=== PATIENT | male | born 1990 | race Caucasian/White ===

== ENCOUNTER 2023-01-18 13:18 | Emergency (ER) | payer OTHER ==
[~2023-01-18] VITALS: Ht 162.6 cm; Wt 73.1 kg
[~2023-01-18 13:18] MED LIST: BUSPIRONE HCL10 MG; NAPROSYN500 MG PO; ROBAXIN-750750 MG PO
[2023-01-18] MEDS ORDERED: ZITHROMAX250 MG PO (13:40)
[2023-01-18 14:06] VITALS: BP 148/88
== END 2023-01-18 14:06 | disposition home or self-care (01) ==
LOC: ED 13:18
DX: H73.012 Bullous myringitis, left ear (principal); J06.9 Acute upper respiratory infection, unspecified; F17.200 Nicotine dependence, unspecified, uncomplicated; Z88.1 Allergy status to other antibiotic agents
CPT/HCPCS: 94640; 99283-25; 99406

== ENCOUNTER 2024-03-02 15:33 | Emergency (ER) | payer OTHER ==
[~2024-03-02] VITALS: Ht 162.6 cm; Wt 58.1 kg
[~2024-03-02 15:33] MED LIST changes: +ZITHROMAX250 MG PO
--- OUTSIDE RECORDS SUMMARY | 2024-03-02 15:39 | XMS ---
PreManage Notification: SAJAN SMITH [employer] Uphol[employer] Events No recent Security Events currently on file CRITERIA MET - [facility] - 2 Visits in 30 Days CARE PROVIDERS -Derrick DMD Dentist: Service Dispatcher Current PHONE: [phone] Nj Valdez DO [facility] Current PHONE: Unknown [facility] has no Care Guidelines for this patient. Justine VISIT COUNT (12 MO.) [address] [place] [address] TOTAL 2 NOTE: Visits indicate total known visits. ED/UCC VISIT TRACKING (12 MO.) 03/02/2024 15:33 [facility] [place] TYPE: Emergency COMPLAINT: - MEDICAL CLEARANCE 02/22/2024 13:13 [facility] [place] TYPE: Emergency DIAGNOSES: - Delusional disorders - Psychophysiologic insomnia - INGESTION INPATIENT VISIT TRACKING (12 MO.) No inpatient visits to display in this time frame [email or web address]
[2024-03-02] MEDS ORDERED: OLANZapine 10 MG TABDIS PO ONE (16:15)
[2024-03-02 16:38] LABS: EOSINOPHILS 1.3 % (0-6); HEMATOCRIT 51.6 % (35.0-50.0); HEMOGLOBIN 18.2 g/dL (12.0-18.0); LYMPHOCYTES 33.9 % (24-44); MCH 32.4 (27-36); MCHC 35.3 g/dl (30-36); MCV 91.6 fl (81-99); MONOCYTES 11.7 % (0-12); NEUTROPHILS 52.1 % (39-80); PLATELET COUNT 274 K/uL (140-440); RBC 5.63 M/ul (4.3-5.7); RDW 14.6 (10.5-15.0)
[2024-03-02 16:54] LABS: BILIRUBIN, URINE NEGATIVE (negative); BLOOD/HGB, URINE NEGATIVE (Negative); KETONE, URINE NEGATIVE (Negative); LEUK ESTERASE, URINE NEGATIVE (negative); NITRITE, URINE NEGATIVE (negative)
[2024-03-02] MEDS ORDERED: NICOTINE 21 MG/24 HR 1 EA TDSY TD SCH (16:56)
[2024-03-02 17:06] LABS: ACETAMINOPHEN 0 ug/mL (10-30); ALBUMIN 4.3 g/dL (3.4-5.0); ALBUMIN/GLOBULIN RATIO 1.02 (1.1-2.4); ALCOHOL, MEDICAL <3 ng/dL (<3); ALKALINE PHOSPHATASE 99 U/L (46-116); ALT (SGPT) 122 U/L (14-59); ANION GAP 11.3 (7-21); AST (SGOT) 37 U/L (15-37); BILIRUBIN, TOTAL 0.6 ng/dL (0.2-1.0); BUN/CREATININE RATIO 17.89 (6.0-28.6); CALCIUM 9.5 mg/dL (8.5-10.1); CARBON DIOXIDE 30 mmol/L (21-32); CHLORIDE 100 mmol/L (98-107); CREATININE, SERUM 0.95 mg/dL (0.70-1.30); GLOMERULAR FILTRATION RATE,EST 110 mL/min (>60); POTASSIUM 4.3 mmol/L (3.5-5.1); PROTEIN, TOTAL 8.5 g/dL (6.4-8.2); SALICYLATE 5.6 mg/dL (2.8-20.0); TSH, 3RD GENERATION 1.251 uIU/mL (0.358-3.740); UREA NITROGEN 17 mg/dL (7-18)
[2024-03-02 17:10] LABS: AMPHETAMINES, URINE NEGATIVE (NEGATIVE); BARBITURATES, URINE NEGATIVE (NEGATIVE); BENZODIAZEPINE, URINE NEGATIVE (NEGATIVE); BUPRENORPHINE, URINE NEGATIVE (NEGATIVE); CANNABINOID, URINE NEGATIVE (NEGATIVE); COCAINE, URINE NEGATIVE (NEGATIVE); ECSTASY, URINE NEGATIVE (NEGATIVE); FENTANYL, URINE NEGATIVE (NEGATIVE); METHADONE, URINE NEGATIVE (NEGATIVE); OPIATES, URINE NEGATIVE (NEGATIVE); OXYCODONE, URINE NEGATIVE (NEGATIVE); PHENCYCLIDINE, URINE NEGATIVE (NEGATIVE)
[2024-03-02] MEDS ORDERED: QUETIAPINE FUMARATE 100 MG TAB PO SCH (21:00)
[2024-03-03 11:07] VITALS: BP 150/92
[2024-03-04 16:45] LABS: TESTOSTERONE BY IMMUNOASSAY 348 ng/dL (300-1080)
== END 2024-03-03 11:08 | disposition home or self-care (01) ==
LOC: ED 15:33
PROVIDERS: Emergency Medicine
DX: F31.9 Bipolar disorder, unspecified (principal); R45.851 Suicidal ideations; J45.909 Unspecified asthma, uncomplicated; F17.200 Nicotine dependence, unspecified, uncomplicated; Z88.1 Allergy status to other antibiotic agents
CPT/HCPCS: 36415; 80053; 80307; 81003; 84403; 84443; 85025; 99284; A9270; G0480

== ENCOUNTER 2024-09-15 15:12 | Emergency (ER) | payer OTHER ==
--- OUTSIDE RECORDS SUMMARY | 2024-09-15 15:19 | XMS ---
PreManage Notification: SAJAN SMITH Security Director Of Placement Events No recent Security Events currently on file CRITERIA MET - [facility] - 2 Visits in 30 Days CARE PROVIDERS -Derrick DMD Dentist: Stud Master/Mist[employer] Current PHONE: [phone] [facility] PHONE: [phone] Lupillo has no Care Guidelines for this patient. Justine VISIT COUNT (12 MO.) [address] TOTAL 5 NOTE: Visits indicate total known visits. ED/UCC VISIT TRACKING (12 MO.) 09/15/2024 15:12 [facility] TYPE: Emergency COMPLAINT: - FALL 08/23/2024 16:25 [facility] [place] TYPE: Emergency COMPLAINT: - HIT HEAD ON ROCK DIAGNOSES: - Allergy status to other drugs, medicaments and biological substances - Fall into natural body of water striking side causing other injury, initial encounter - Laceration without foreign body of scalp, initial encounter - intermediate (current) use of antibiotics - Nicotine dependence, unspecified, uncomplicated - Unspecified injury of head, initial encounter 05/07/2024 19:28 [facility] [place] TYPE: Emergency DIAGNOSES: - Bipolar disorder, current episode mixed, moderate - Suicidal ideations - Medical Clearance 03/02/2024 15:33 [facility] [place] TYPE: Emergency COMPLAINT: - MEDICAL CLEARANCE DIAGNOSES: - Allergy status to other antibiotic agents - Bipolar disorder, unspecified - Nicotine dependence, unspecified, uncomplicated - Suicidal ideations - Unspecified asthma, uncomplicated 02/22/2024 13:13 [facility] [place] TYPE: Emergency DIAGNOSES: - Delusional disorders - Psychophysiologic insomnia - INGESTION INPATIENT VISIT TRACKING (12 MO.) No inpatient visits to display in this time frame [email or web address]
[2024-09-15 15:30] LABS: BASOPHILS 0.9 % (0.2-1.2); EOSINOPHILS 0.9 % (0.8-7.0); LYMPHOCYTES 33.3 % (21.8-53.1); MCH 31.8 PG (25.7-32.2); MCHC 34.9 g/dL (32.3-36.5); MCV 91.2 fL (79.0-92.2); MONOCYTES 12.6 % (5.3-12.2); NEUTROPHILS 51.6 % (34.0-67.9); RBC 5.25 M/uL (4.63-6.08)
[2024-09-15] MEDS ORDERED: FOLIC ACID 1 MG/0.2 ML ML IV ONE (15:30)
[2024-09-15] MEDS ORDERED: THIAMINE HCL 200 MG/2 ML VIAL IV ONE (15:30)
[2024-09-15] MEDS ORDERED: HYDROXYZINE HCL50 MG PO (15:38)
[2024-09-15] MEDS ORDERED: CARBAMAZEPINE200 MG PO (15:38)
[2024-09-15] MEDS ORDERED: TRAZODONE HCL100 MG PO (15:38)
[2024-09-15 15:47] LABS: ALCOHOL, MEDICAL 314.0 ng/dL (<3); ALT (SGPT) 44.0 U/L (14-59); AST (SGOT) 26.0 U/L (15-37); GLOMERULAR FILTRATION RATE,EST 85.0 mL/min (>60); INR 0.96 (0.80-1.30); PROTEIN, TOTAL 7.3 g/dL (6.4-8.2); PROTIME 12.4 Sec (11.2-14.2); UREA NITROGEN 11.0 mg/dL (7-18)
[2024-09-15 17:15] LABS: AMPHETAMINES, URINE POSITIVE (NEGATIVE); BARBITURATES, URINE NEGATIVE (NEGATIVE); BENZODIAZEPINE, URINE NEGATIVE (NEGATIVE); CANNABINOID, URINE NEGATIVE (NEGATIVE); COCAINE, URINE NEGATIVE (NEGATIVE); ECSTASY, URINE NEGATIVE (NEGATIVE); FENTANYL, URINE NEGATIVE (NEGATIVE); METHADONE, URINE NEGATIVE (NEGATIVE); OPIATES, URINE NEGATIVE (NEGATIVE); OXYCODONE, URINE NEGATIVE (NEGATIVE); PHENCYCLIDINE, URINE NEGATIVE (NEGATIVE)
== END 2024-09-15 18:00 | disposition short-term general hospital (02) ==
LOC: ED 15:12
PROVIDERS: Emergency Medicine
DX: S06.6XAA Traumatic subarachnoid hemorrhage with loss of consciousness status unknown, initial encounter (principal); W18.30XA Fall on same level, unspecified, initial encounter; F17.200 Nicotine dependence, unspecified, uncomplicated; Z79.899 Other long term (current) drug therapy; Z88.1 Allergy status to other antibiotic agents
CPT/HCPCS: 36415; 70450; 72125; 80053; 80307; 83690; 83735; 85025; 85610; 96374; 96375; 99285-25; G0480; J3411